=== PATIENT | female | born 1955 | race Hispanic/Latino ===

== ENCOUNTER 2016-03-13 08:31 | Outpatient (CLI) | payer OTHER, MEDICARE ==
--- NOTE | 2016-03-13 09:06 | XRay Report ---
PA and lateral chest: There are bilateral surgical clips in the anterior chest soft tissues probably within the breast tissue. The patient does have a history of a right mastectomy with TRAM procedure and left augmented breast. The lungs are clear and the mediastinal contour is unremarkable. These findings are unchanged from her prior examination in 2012. There has been interval subcapital fracture of the left humerus as well as what appears to be some contour deformities of the humeral head. Impressions: 1. Stable rest surgical changes with no cardiopulmonary findings. 2. Fracture of the left humerus of indeterminate age.
== END 2016-03-13 08:32 | disposition home or self-care (01) ==
LOC: SPVIMAG 08:31
PROVIDERS: ATTEND Internal Medicine
DX: Z01.818 Encounter for other preprocedural examination (principal); S42.302A Unspecified fracture of shaft of humerus, left arm, initial encounter for closed fracture; Z90.11 Acquired absence of right breast and nipple; X58.XXXA Exposure to other specified factors, initial encounter; Y93.89 Activity, other specified; Y92.89 Other specified places as the place of occurrence of the external cause; Y99.8 Other external cause status
CPT/HCPCS: 71020